=== PATIENT | female | born 1940 | race Caucasian/White ===

== ENCOUNTER 2017-05-03 13:58 | Outpatient (CLI) | payer MEDICARE, BC ==
[~2017-05-03] VITALS: Ht 160 cm; Wt 52.2 kg
[2017-05-03 14:30] LABS: TOTAL HEMOGLOBIN 16.3 G/dl (12.0-16.0)
[2017-05-03] MEDS ORDERED: albuterol 2.5 MG/3 ML nebule NEB PRN (14:50)
== END 2017-05-03 23:59 | disposition home or self-care (01) ==
LOC: RT 13:58
PROVIDERS: ATTEND Internal Medicine Pulmonary Disease
DX: J44.9 Chronic obstructive pulmonary disease, unspecified (principal); F17.200 Nicotine dependence, unspecified, uncomplicated; R06.09 Other forms of dyspnea; R05 Cough; Z85.118 Personal history of other malignant neoplasm of bronchus and lung
CPT/HCPCS: 85018; 94060; 94640; 94727; 94729; 94760